=== PATIENT | female | born 1960 | race Caucasian/White ===

== ENCOUNTER 2019-06-20 09:36 | Outpatient (CLI) | payer BC, SELFPAY ==
[2019-06-20 10:05] LABS: Basophils Percent Auto 0.5 % (0.2-1.2); Eosinophils Percent Auto 0.4 % (0-4.4); Hematocrit 35.8 % (37.0-47.0); Immature Granulocyte Absolute 0.01 K/mm3 (0.00-0.031); Immature Granulocyte Percent A 0.1 % (0-0.5); Lymphocytes Absolute Auto 1.84 K/mm3 (0.9-3.2); Lymphocytes Percent Auto 24.9 % (18.3-44.2); Mean Corpuscular HGB Conc 33.5 g/dl (32-36); Mean Corpuscular Hemoglobin 29.2 pg (26-34); Mean Corpuscular Volume 87.1 fl (80-100); Mean Platelet Volume 9.3 fl (7.4-10.4); Monocytes Absolute Auto 0.6 K/mm3 (0.1-0.6); Monocytes Percent Auto 8.7 % (2.6-8.5); Neutrophils Absolute Auto 4.8 K/mm3 (1.3-6.7); Neutrophils Percent Auto 65.4 % (45.5-73.1); Platelet Count Result 348 k/mm3 (150-375); Red Blood Count 4.11 M/mm3 (4.2-5.4); Red Cell Distribution Width 11.9 % (11.5-14.5); White Blood Count 7.4 K/mm3 (4.5-10.0)
[2019-06-20 10:18] LABS: Alanine Aminotransferase 20 U/L (4-35); Albumin Level 4.5 g/dL (3.5-5.1); Alkaline Phosphatase 99 U/L (38-126); Amylase 59 U/L (30-110); Aspartate Amino Transferase 32 U/L (14-36); Bilirubin,Total 0.4 mg/dL (0.2-1.3); Blood Urea Nitrogen 29 mg/dL (7-17); Calcium 9.8 mg/dL (8.4-10.2); Carbon Dioxide 25 mmol/L (22-30); Chloride 96 mmol/L (98-107); Estimated Glomerular Filt Rate 51; Glucose 139 mg/dL (65-105); Lipase 174 U/L (23-300); Potassium 3.6 mmol/L (3.4-5.0); Sodium 136 mmol/L (137-145)
== END 2019-06-20 09:37 | disposition home or self-care (01) ==
PROVIDERS: PCP Family Medicine; Visit Provider Family Medicine
DX: R10.9 Unspecified abdominal pain (principal)
CPT/HCPCS: 36415; 80053; 82150; 83690; 85025

== ENCOUNTER 2020-03-18 06:49 | Outpatient (NON) | payer BC, SELFPAY ==
[2020-03-19 18:20] LABS: SARS-CoV-2 RNA PCR Positive
== END 2020-03-18 06:50 ==
LOC: ANHCOVIDDT 07:00
PROVIDERS: Nurse Practitioner Family; PCP Family Medicine; Visit Provider Family Medicine
DX: U07.1 COVID-19 (principal)
CPT/HCPCS: 87635; C9803; U0003

== ENCOUNTER 2020-11-09 08:57 | Emergency (ER) | payer BC, SELFPAY ==
[2020-11-09 09:01] VITALS: BP 142/85; PULSE 104; RESP 18; TEMP 36.3; O2SAT 98
[2020-11-09] MEDS: predniSONE 20 MG TABLET 40 MG PO (10:48)
[2020-11-09] MEDS: hydrOXYzine HCL 25 MG TABLET PO (10:49)
[2020-11-09] MEDS: FAMOTIDINE 20 MG TABLET PO (10:49)
--- NOTE | 2020-11-09 11:25 | ED.GENADULT ---
HPI - General Adult General Chief complaint: Skin/Abscess/Foreign Body <Vidal Hodge PA-C - Last Filed: 11/09/20 11:29> Stated complaint: hives <Vidal Hodge PA-C - Last Filed: 11/09/20 11:29> Time Seen by Provider: 11/09/20 10:14 <Vidal Hodge PA-C - Last Filed: 11/09/20 11:29> Source: patient and RN notes reviewed <Vidal Hodge PA-C - Last Filed: 11/09/20 11:29> Mode of arrival: ambulatory <DONI Villanueva Last Filed: 11/09/20 11:29> Limitations: no limitations <Vidal Hodge PA-C - Last Filed: 11/09/20 11:29> History of Present Illness HPI narrative: Patient is a 60-year-old female who presents with urticaria to the upper extremities and torso that began yesterday patient felt as though it may be stress because that she had 1 similar occurrence in the past attributed to stress. Patient took Benadryl this morning with minimal improvement at this time. Patient denies other known allergic exposures denies any dyspnea URI symptoms or angioedema in the oropharynx or throat tightening <Vidal Hodge PA-C - Last Filed: 11/09/20 11:29> Related Data Home medications: Home Medications Medication Instructions Recorded Confirmed metoprolol succinate 25 mg 25 mg PO DAILY 03/29/19 07/01/20 tablet,extended release 24 hr methimazole 10 mg tablet 15 mg PO DAILY tablet 04/01/20 07/01/20 <Vidal Hodge PA-C - Last Filed: 11/09/20 11:29> Allergies/adverse reactions: Allergies Allergy/AdvReac Type Severity Reaction Status Date / Time No Known Allergies Allergy Verified 07/01/20 10:23 <Vidal Hodge PA-C - Last Filed: 11/09/20 11:29> Review of Systems Review of Systems: All systems reviewed & are unremarkable except as noted in HPI and below <Vidal Hodge PA-C - Last Filed: 11/09/20 11:29> PMFSH Past Medical History Medical History: Medical History Controlled diabetes mellitus Rotator cuff arthropathy <Vidal Hodge PA-C - Last Filed: 11/09/20 11:29> Surgical History Surgical History: Surgical History History of arthroscopy of right knee <Vidal Hodge PA-C - Last Filed: 11/09/20 11:29> Family History Family History: Family History Father Carcinoma of colon Family history of diabetes mellitus in first degree relative Family history of coronary artery disease Sibling Family history of diabetes mellitus in first degree relative <Vidal Hodge PA-C - Last Filed: 11/09/20 11:29> Social History Social History: Social History Smoking status: Never smoker Second hand tobacco smoke exposure: No Alcohol intake: never Substance use: never Substance use type: does not use Gender identity (if verbalized by the patient): Female Agree to blood products: No <Vidal Hodge PA-C - Last Filed: 11/09/20 11:29> Exam Narrative: Exam Narrative: GENERAL: Well-appearing, well-nourished, and in no acute distress. HEAD: Normocephalic, atraumatic. EYES: PERRLA and EOMI. ENT: Nares clear, no rhinorrhea or epistaxis. Mucous membranes moist. Oropharynx without tonsillar hypertrophy exudate or other lesions. No angioedema in the oropharynx NECK: Supple. No adenopathy or masses. No stridor CHEST: Clear to auscultation. No respiratory distress. No wheezes rales or rhonchi HEART: Regular rate and rhythm. No murmur heard. Normal peripheral pulses. EXTREMITIES: Normal range of motion. No edema. SKIN: Warm, dry, patient with a few scattered small urticaria over the upper extremities with urticaria over the torso NEURO: No focal deficits. Alert and oriented x3. PSYCH: Normal mood and affect. <Vidal Hodge PA-C - Last Filed: 11/09/20 11:29> Course Cou
[2020-11-09 11:49] VITALS: BP 145/82; PULSE 76; RESP 16; O2SAT 98
== END 2020-11-09 11:50 | disposition home or self-care (01) ==
PROVIDERS: Emergency Provider General Practice; PCP Family Medicine
DX: L50.9 Urticaria, unspecified (principal); E11.9 Type 2 diabetes mellitus without complications; Z79.84 Long term (current) use of oral hypoglycemic drugs
CPT/HCPCS: 99283; A9270; J7512

== ENCOUNTER 2023-02-21 00:09 | Day surgery (SDC) | payer BC, SELFPAY ==
[2023-02-08 15:40] VITALS: BMI 30.8
--- NOTE | 2023-02-19 09:29 | PM.HPGS ---
History of Present Illness History of Present Illness Consent: Risks, benefits, and alternatives have been discussed and questions answered. Patient agrees to proceed with procedure. Chief complaint: fam hx colon ca Narrative: Camryn Rocha is a 62 year old female Referred for colon cancer screening. She is high risk because her father had colon cancer. Her last colonoscopy was 7 years ago. Review of Systems Review of Systems: All systems reviewed & are unremarkable except as noted in HPI and below PMFSH Past Medical History Medical History Controlled diabetes mellitus Diabetes mellitus type II, uncontrolled Rotator cuff arthropathy Surgical History Surgical History History of arthroscopy of right knee Family History Family History Father Carcinoma of colon Family history of diabetes mellitus in first degree relative Family history of coronary artery disease Sibling Family history of diabetes mellitus in first degree relative Social History Social History Smoking status: Never smoker Second hand tobacco smoke exposure: No Alcohol intake: never Substance use: never Substance use type: does not use Living arrangements: with family Occupation/Education: occupation Gender identity (if verbalized by the patient): Female Sexual Orientation (if Verbalized by the Patient): Straight or Heterosexual Spiritual care concerns: No Agree to blood products: No Meds Home Medications and Allergies Home Medications Medication Instructions Recorded Confirmed Type blood sugar diagnostic (OneTouch #100 ea 08/31/19 10/13/22 Rx Ultra Blue Test Strip) lancets (OneTouch UltraSoft #100 ea 08/31/19 10/13/22 Rx Lancets) pen needle, diabetic 29 gauge x #100 ea 03/19/21 10/13/22 Rx 1/2 (BD Ultra-Fine Original Pen Needle) dulaglutide 3 mg/0.5 mL 3 mg (0.5 mL) subcut WEEKLY #6 mL 08/19/22 02/08/23 [facility] [place] [facility] atorvastatin 20 mg tablet 20 mg PO DAILY #90 tabs 09/20/22 02/08/23 Rx lisinopril 10 1 tablet PO DAILY #90 tabs 09/20/22 02/08/23 Rx mg-hydrochlorothiazide 12.5 mg tablet metformin 500 mg tablet,extended 2,000 mg PO DAILY #360 tabs 09/20/22 02/08/23 Rx release 24 hr blood-glucose meter,continuous #1 ea 10/15/22 10/15/22 Rx (Dexcom G6 [employer] Concierge) blood-glucose sensor (Dexcom G6 #3 ea 10/15/22 10/15/22 Rx Sensor device) methimazole 5 mg tablet 5 mg PO DIRECTED 02/08/23 02/08/23 History metoprolol succinate 50 mg 50 mg PO BID 02/08/23 02/21/23 History tablet,extended release 24 hr selenium 200 mcg tablet,delayed 200 mcg PO DAILY 02/08/23 02/08/23 History release Allergies Allergy/AdvReac Type Severity Reaction Status Date / Time No Known Allergies Allergy Verified 02/21/23 09:41 Exam Resp: Auscultation: clear to auscultation bilaterally Cardio: Rate: regular rate Rhythm: regular rhythm GI: GI Palp: Yes Soft to palpation and No Tenderness to palpation present (GI) Assessment and Plan Assessment and plan (1) Colon cancer screening: Code(s): Z12.11 - Encounter for screening for malignant neoplasm of colon Status: Acute Assessment and Plan: Colonoscopy with possible biopsy or polypectomy or cautery or injection of substances.
[2023-02-21 09:42] VITALS: BP 150/64; PULSE 108; RESP 18; TEMP 36.1; O2SAT 100
[2023-02-21] MEDS: LACTATED RINGERS 1,000 ML 150 ML IV CONT (10:00)
[2023-02-21 10:02] LABS: Glucose Point of Care 132 mg/dl (65-105)
[2023-02-21 11:25] VITALS: BP 115/64; PULSE 100; RESP 20; O2SAT 95
[2023-02-21 11:35] VITALS: BP 111/64; PULSE 102; RESP 22; O2SAT 100
[2023-02-21 11:45] VITALS: BP 133/80; PULSE 95; RESP 18; O2SAT 100
== END 2023-02-21 11:53 | disposition home or self-care (01) ==
PROVIDERS: PCP Family Medicine; Visit Provider Internal Medicine Gastroenterology
PROC: 0DJD8ZZ Inspection of Lower Intestinal Tract, Via Natural or Artificial Opening Endoscopic (ICD-10-PCS; CPT 45378; principal; 2023-02-21 11:00)
DX: Z12.11 Encounter for screening for malignant neoplasm of colon (principal); E11.65 Type 2 diabetes mellitus with hyperglycemia; Z80.0 Family history of malignant neoplasm of digestive organs; Z79.85 Long-term (current) use of injectable non-insulin antidiabetic drugs; Z79.84 Long term (current) use of oral hypoglycemic drugs
CPT/HCPCS: 45378; 82948; J2001; J2704; J7120

== ENCOUNTER 2023-08-18 06:14 | Emergency (ER) | payer BC, SELFPAY ==
[2023-08-18 06:17] VITALS: BP 158/71; PULSE 104; RESP 15; TEMP 35.8; O2SAT 98
[2023-08-18 06:26] VITALS: BP 151/81; PULSE 100; RESP 14; TEMP 36.6; O2SAT 95
[2023-08-18 06:28] VITALS: O2SAT 94
--- NOTE | 2023-08-18 07:27 | ED.ALLEREA ---
HPI - Allergic Reaction General Chief complaint: Allergic Reaction Stated complaint: itching Time Seen by Provider: 08/18/23 07:00 History of Present Illness HPI narrative: Patient is a 63-year-old female who presents ER with itching. She was started on Macrobid yesterday for UTI. She has tolerated it well in the past. She reports she has not changed any laundry detergents because yesterday was laundry . She began itching in the middle of the night after 2 doses of the medication. She took Benadryl today without improvement. When she itches herself she leaves red welts on her skin. No difficulty breathing or swallowing. Related Data Home Medications Medication Instructions Recorded Confirmed metoprolol succinate 50 mg 50 mg PO BID 02/08/23 08/02/23 tablet,extended release 24 hr selenium 200 mcg tablet,delayed 200 mcg PO DAILY 02/08/23 08/02/23 release methimazole 5 mg tablet 10 mg PO DIRECTED 03/01/23 08/02/23 Allergies Allergy/AdvReac Type Severity Reaction Status Date / Time nitrofurantoin Allergy Rash Verified 08/18/23 07:32 [From Macrobid] Review of Systems ENT: Reports system reviewed and no additional complaints, except as documented Respiratory: Respiratory: Reports no additional respiratory complaints Genitourinary: Genitourinary: Reports nocturia and Reports dysuria Integumentary/Breasts: Skin/Breast: Reports pruritus, Denies erythema and Denies rash [facility] Past Medical History Medical History Controlled diabetes mellitus Diabetes mellitus type II, uncontrolled Rotator cuff arthropathy Surgical History Surgical History History of arthroscopy of right knee Family History Family History Father Carcinoma of colon Family history of diabetes mellitus in first degree relative Family history of coronary artery disease Sibling Family history of diabetes mellitus in first degree relative Social History Social History Smoking status: Never smoker Second hand tobacco smoke exposure: No Alcohol intake: never Substance use: never Substance use type: does not use Living arrangements: with family Occupation/Education: occupation Gender identity (if verbalized by the patient): Female Sexual Orientation (if Verbalized by the Patient): Straight or Heterosexual Spiritual care concerns: No Agree to blood products: No Exam Narrative: GENERAL: Well-appearing, well-nourished, and in no acute distress. HEAD: Normocephalic, atraumatic. ENT: Mucous membranes moist. CHEST: Clear to auscultation. No respiratory distress. HEART: Regular rate and rhythm. EXTREMITIES: Normal range of motion. No edema. SKIN: Warm, dry, no rash. NEURO: Alert and oriented x3. PSYCH: Normal mood and affect. Course Course Emergency Course: Patient resting comfortably. Will change Macrobid to cephalexin. Will give patient 1 time dose of loratadine and famotidine here. Caution patient on worsening allergic reaction symptoms if it is not related to her antibiotic but related to her lisinopril. Discussed if she has swelling of the tongue or lips she should return but also discontinue her lisinopril. Vital Signs Vital signs: Vital Signs Temperature 96.5 F L 08/18/23 06:17 Pulse Rate 104 H 08/18/23 06:17 Respiratory Rate 15 08/18/23 06:17 Blood Pressure 158/71 H 08/18/23 06:17 Pulse Oximetry 98 08/18/23 06:17 Oxygen Delivery Room Air 08/18/23 06:17 Temperature 97.8 F 08/18/23 06:26 Pulse Rate 100 08/18/23 06:26 Respiratory Rate 14 08/18/23 06:26 Blood Pressure 151/81 H 08/18/23 06:26 Pulse Oximetry 94 08/18/23 06:28 Oxygen Delivery Room Air 08/18/23 06:28 Discharge Plan Discharge Clinical Impression:
[2023-08-18] MEDS: FAMOTIDINE 20 MG TABLET PO (07:37)
[2023-08-18] MEDS: LORATADINE 10 MG TABLET PO (07:37)
== END 2023-08-18 07:53 | disposition home or self-care (01) ==
LOC: ANHED 07:40
PROVIDERS: Emergency Provider Emergency Medicine; PCP Family Medicine
DX: L29.9 Pruritus, unspecified (principal); T50.905A Adverse effect of unspecified drugs, medicaments and biological substances, initial encounter; N39.0 Urinary tract infection, site not specified; E11.9 Type 2 diabetes mellitus without complications; Z79.85 Long-term (current) use of injectable non-insulin antidiabetic drugs; Z79.84 Long term (current) use of oral hypoglycemic drugs
CPT/HCPCS: 99283; A9270